=== PATIENT | male | born 1970 | race Two or more races ===

== ENCOUNTER 2018-03-22 10:20 | Emergency (ER) | payer SELFPAY ==
[~2018-03-22] VITALS: Ht 165.1 cm; Wt 90.7 kg
[2018-03-22] MEDS ORDERED: ACETAMINOPHEN325 M1 ORAL (11:10)
[2018-03-22] MEDS ORDERED: TRAZODONE HCL50 MG ORAL (11:10)
[2018-03-22] MEDS ORDERED: HYDRALAZINE HCL25 M1 ORAL (11:10)
[2018-03-22] MEDS ORDERED: CYMBALTA30 MG ORAL (11:10)
[2018-03-22] MEDS ORDERED: ASCORBIC ACID500 MG ORAL (11:10)
[2018-03-22] MEDS ORDERED: BACLOFEN10 MG ORAL (11:10)
[2018-03-22] MEDS ORDERED: COLACE100 MG ORAL (11:10)
[2018-03-22] MEDS ORDERED: BANOPHEN25 MG PO (11:10)
[2018-03-22] MEDS ORDERED: MULTIVITAMINS1 EAC2 ORAL (11:10)
[2018-03-22] MEDS ORDERED: LIDOCANE (11:10)
[2018-03-22] MEDS ORDERED: GABAPENTIN600 MG ORAL (11:10)
[2018-03-22] MEDS ORDERED: HEPARIN SO5000 UNIT2 SUBQ (11:10)
[2018-03-22] MEDS ORDERED: PREDNISONE20 MG ORAL (11:52)
[2018-03-22] MEDS ORDERED: HYDROXYZINE PAM25 MG PO (11:52)
[2018-03-22] MEDS ORDERED: DiphenhydrAMINE 25mg/10ml Elixir ORAL ONE (12:00)
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
[2018-03-22 15:54] VITALS: BP 158/84
[2018-03-22 15:55] VITALS: BP 158/84
== END 2018-03-22 13:00 | disposition home or self-care (01) ==
LOC: EMR 11:15
DX: R21 Rash and other nonspecific skin eruption (principal); F32.9 Major depressive disorder, single episode, unspecified; G82.20 Paraplegia, unspecified
CPT/HCPCS: 99283; J7512; 96372